=== PATIENT | male | born 1980 | race Caucasian/White ===

== ENCOUNTER 2020-04-16 16:02 | Emergency (ER) | payer BC ==
[2020-04-16] MEDS ORDERED: Diphtheria,Pertussis(Acell),Tetanus Vaccine 0.5 ML Syringe IM ONE (16:23)
[2020-04-16] MEDS ORDERED: Lidocaine 1% 10 ML MDV INJECT ONE (16:23)
--- NOTE | 2020-04-16 16:32 | EDM.PDOC ---
ED HPI GENERAL MEDICAL PROBLEM - General Chief Complaint: Head Injury Stated Complaint: HEAD INJURY Time Seen by Provider: 04/16/20 16:19 Source of Information: Reports: Patient, RN Notes Reviewed History Limitations: Reports: No Limitations - History of Present Illness INITIAL COMMENTS - FREE TEXT/NARRATIVE: Patient is a 39-year-old male presenting to the emergency department with complaints of a laceration to the top of his head. He states that a wooden beam fell down and hit him on the top of the head causing a laceration. He did not have loss of consciousness. He denies any headache or vision changes. Denies any nausea or vomiting. He is unsure when his last tetanus vaccination was. Head Pain Score (Numeric/FACES): 3 - Related Data Allergies Allergy/AdvReac Type Severity Reaction Status Date / Time No Known Allergies Allergy Verified 04/16/20 16:12 Home Meds: Home Meds . [No Known Home Meds] 04/16/20 [History] Past Medical History Gastrointestinal History: Reports: Other (See Below) Other Gastrointestinal History: ibs - Past Surgical History Male Surgical History: Reports: Vasectomy Social & Family History - Tobacco Use Tobacco Use Status *Q: Never Tobacco User Second Hand Smoke Exposure: No - Caffeine Use Caffeine Use: Reports: Coffee - Recreational Drug Use Recreational Drug Use: No ED ROS GENERAL - Review of Systems Review Of Systems: Comprehensive ROS is negative, except as noted in HPI. ED EXAM, HEAD INJURY - Physical Exam Exam: See Below General Appearance: Alert, WD/WN, No Apparent Distress Head: Scalp Lacerations (3 cm mid parietal laceration. 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, No Motor/Sensory Deficits, Alert, Normal Mood/Affect, Oriented x 3 - Diana Coma Score Best Eye Response (Diana): (4) Open Spontaneously Best Verbal Response (Atwood): (5) Oriented Best Motor Response ([place]wood): (6) Obeys Commands ED LACERATION/WOUND & AURA PROC - Laceration/Wound Repair Middle Head Lac/wound length in cm: 3 Appearance: Subcutaneous Anesthetic Type: Local Local Anesthesia - Lidocaine (Xylocaine): 1% Plain Local Anesthetic Volume: 1cc Skin Prep: Chlorhexidine (Hibiciens), Saline Exploration/Debridement/Repair: Wound Explored, No Foreign Material Found Closed with: Thurston # of Sutures: 4 Sterile Dressing Applied: Nurse Tetanus Status Addressed: Yes Complications: No Course - Vital Signs Last Recorded V/S: Last Vital Signs Temp 97.0 F 04/16/20 16:11 Pulse 79 04/16/20 16:11 Resp 15 04/16/20 16:11 BP 152/76 H 04/16/20 16:11 Pulse Ox 98 04/16/20 16:11 - Orders/Labs/Meds Orders: Active Orders 24 hr Category Date Time Status Vaccines to be Administered [RC] PER UNIT ROUTINE Care 04/16/20 16:23 Active Meds: Medications Discontinued Medications Generic Name Dose Route Start Last Admin Trade Name Freq PRN Reason Stop Dose Admin Diphtheria/Tetanus/Acell Pertussis 0.5 ml 04/16/20 16:23 04/16/20 16:55 Adacel IM 04/16/20 16:24 0.5 ml .ONCE ONE Administration Lidocaine HCl 10 ml 04/16/20 16:23 04/16/20 16:55 Xylocaine 1% INJECT 04/16/20 16:24 10 ml ONETIME ONE Administration Departure - Departure Time of Disposition: 17:00 Disposition: Home, Self-Care 01 Condition: Good Clinical Impression: Laceration of head Qualifiers: Encounter type: initial encounter Location of open wound of head: scalp Foreign body presence: without foreign body Qualified Code(s): S01.01XA - Laceration without foreign body of scalp, initial encounter - Discharge Information *PRESCRIPTION DRUG MONITORING PROGRAM REVIEWED*: No *COPY OF PRESCRIPTION DRUG MONITORING REPORT IN PATIENT TARIQ: No Instructions: Laceration Care, Adult, Head Injury, Adult, [id number] Referrals: Rafat Viramontes MD [Primary Care Provider] - Forms: ED Department Discharge Additional Instructions: You were seen in the emergency department today for a laceration to your head. The wound was cleansed and closed with 4 ladi. These should stay intact for 7 days. After that time they may be removed in the clinic by a nurse. Keep the wound clean and dry. Wash with normal soap and water twice daily. Do not submerge the wound in water. Watch for signs of infection including increased redness, swelling, or purulent drainage. If these should occur, you should be seen either in the clinic or in the emergency department as antibiotic treatment may be needed. With regards to head injury, if you should develop dizziness, blurred vision, vomiting more than 2 times, or any other concerning symptoms, please return to the ER for reevaluation. Sepsis Event Note (ED) - Evaluation Sepsis Screening Result: No Definite Risk - Focused Exam Vital Signs: Vital Signs Temp Pulse Resp BP Pulse Ox 04/16/20 16:11 97.0 F 79 15 152/76 H 98 - My Orders Last 24 Hours: My Active Orders 04/16/20 16:23 Vaccines to be Administered [RC] PER UNIT ROUTINE - Assessment/Plan Last 24 Hours: My Active Orders 04/16/20 16:23 Vaccines to be Administered [RC] PER UNIT ROUTINE
== END 2020-04-16 17:25 | disposition home or self-care (01) ==
LOC: JD.ED 16:02
DX: S01.01XA Laceration without foreign body of scalp, initial encounter (principal); Z23 Encounter for immunization; W20.8XXA Other cause of strike by thrown, projected or falling object, initial encounter
CPT/HCPCS: 12002; 90471; 90715; 99282; J2001

== ENCOUNTER 2021-03-04 18:56 | Emergency (ER) | payer BC ==
--- NOTE | 2021-03-04 20:57 | CR ---
Chest: Frontal view of the chest was obtained. Comparison: No prior chest imaging is available. Heart size and mediastinum are within normal limits. Small density is noted overlying the right hilum presumably due to small calcification which is felt to be incidental. Lungs are clear with no acute parenchymal change. Bony structures show nothing acute. Impression: 1. No acute intrathoracic process is seen on frontal chest x-ray. Diagnostic code #2
--- NOTE | 2021-03-04 21:04 | EDM.PDOC ---
ED HPI GENERAL MEDICAL PROBLEM - General Chief Complaint: Respiratory Problem Stated Complaint: COVID+/FEVER,CHILLS Time Seen by Provider: 03/04/21 19:34 Source of Information: Reports: Patient History Limitations: Reports: No Limitations - History of Present Illness INITIAL COMMENTS - FREE TEXT/NARRATIVE: 40-year-old male presents the emergency department with complaints of worsening Covid symptoms. Patient states he developed Covid symptoms which included fatigue, fever, backache as well as decreased appetite starting on 02/25/2021. He was tested on the day and tested positive. He states that since that time he has had a fever as high as 102 degrees. He states he has been taking Aleve and Tylenol however he states he cannot get his fever below 100 degrees. Also, co mplains of worsening low back pain and fatigue. Patient denies any history of smoking. States he is otherwise healthy. He does not take any prescription medications. He has a BMI of 24.3. Back Pain Score (Numeric/FACES): 8 - Related Data Allergies Allergy/AdvReac Type Severity Reaction Status Date / Time No Known Allergies Allergy Verified 03/04/21 19:22 Home Meds: Home Meds . [No Known Home Meds] 04/16/20 [History] Past Medical History - Past Health History Medical/Surgical History: Denies Medical/Surgical History Gastrointestinal History: Reports: Other (See Below) Other Gastrointestinal History: ibs - Infectious Disease History Infectious Disease History: Reports: Chicken Pox, Novel Coronavirus - Past Surgical History Male Surgical History: Reports: Vasectomy Social & Family History - Tobacco Use Tobacco Use Status *Q: Never Tobacco User Second Hand Smoke Exposure: No - Caffeine Use Caffeine Use: Reports: Coffee - Recreational Drug Use Recreational Drug Use: No ED ROS GENERAL - Review of Systems Review Of Systems: Comprehensive ROS is negative, except as noted in HPI. ED EXAM, GENERAL - Physical Exam Exam: See Below Exam Limited By: No Limitations General Appearance: Alert, WD/WN, Mild Distress Ears: Normal External Exam, Hearing Grossly Normal Nose: Normal Inspection Throat/Mouth: Normal Inspection, Normal Lips, Normal Voice, No Airway Compromise Head: Atraumatic Neck: Normal Inspection, Supple Respiratory/Chest: No Respiratory Distress, Lungs Clear, Normal Breath Sounds, No Accessory Muscle Use, Chest Non-Tender Cardiovascular: Normal Peripheral Pulses, Regular Rate, Rhythm, No Edema, No Murmur Peripheral Pulses: 2+: Radial (L), Radial (R) GI/Abdominal: Normal Bowel Sounds, Soft, Non-Tender, No Distention (Male) Exam: Deferred Rectal (Males) Exam: Deferred Back Exam: Normal Inspection, Paraspinal Tenderness Extremities: Normal Inspection Neurological: Alert, Oriented, Normal Cognition Psychiatric: Normal Affect, Normal Mood Skin Exam: Warm, Dry, Intact, Normal Color, No Rash Lymphatic: No Adenopathy Course - Vital Signs Text/Narrative:: As stated above, patient presents with worsening Covid symptoms, specifically low back pain, fatigue and fever. Physical exam is essentially unremarkable. Lung sounds are clear. Will obtain lab studies to include a CBC, CMP, CRP, magnesium and a D-dimer. We will also obtain a portable chest x-ray. Last Recorded V/S: Last Vital Signs Temp 100.5 F 03/04/21 19:18 Pulse 104 H 03/04/21 19:18 Resp 18 03/04/21 19:18 BP 153/80 H 03/04/21 19:18 Pulse Ox 91 L 03/04/21 19:18 - Orders/Labs/Meds Orders: Active Orders 24 hr Category Date Time Status CTA Chest W WO Contrast [Ang Chest] [CT] Stat Exams 03/04/21 20:43 Taken Sodium Chloride 0.9% [Normal Saline] 100 ml Med 03/04/21 21:45 Active IV ASDIRECTED Medication Orders Sodium Chloride (Normal Saline) 100 mls @ 60 mls/min IV ASDIRECTED GERMÁN Last Admin: 03/04/21 21:38 Dose: 60 mls/min Documented by: GEOVANNA Labs: Laboratory Tests 03/04/21 03/04/21 03/04/21 Range/Units 20:07 20:07 20:07 WBC 3.20 L (4.23-9.07) K/mm3 RBC 4.86 (4.63-6.08) M/mm3 Hgb 14.4 (13.7-17.5) gm/dl Hct 42.6 (40.1-51.0) % MCV 87.7 (79.0-92.2) fl MCH 29.6 (25.7-32.2) pg MCHC 33.8 (32.2-35.5) g/dl RDW Std Deviation 41.9 (35.1-43.9) fL Plt Count 165 (163-337) K/mm3 MPV 10.7 (9.4-12.3) fl Neut % (Auto) 69.3 H (34.0-67.9) % Lymph % (Auto) 18.8 L (21.8-53.1) % [place] % (Auto) 11.3 (5.3-12.2) % Eos % (Auto) 0.3 L (0.8-7.0) Baso % (Auto) 0.3 (0.1-1.2) % Neut # (Auto) 2.22 (1.78-5.38) K/mm3 Lymph # (Auto) 0.60 L (1.32-3.57) K/mm3 [place] # (Auto) 0.36 (0.30-0.82) K/mm3 Eos # (Auto) 0.01 L (0.04-0.54) K/mm3 Baso # (Auto) 0.01 (0.01-0.08) K/mm3 D-Dimer, Quantitative 1.40 H (0.19-0.50) mg/L Sodium 135 L (136-145) mEq/L Potassium 4.4 (3.5-5.1) mEq/L Chloride 98 (98-107) mEq/L Carbon Dioxide 29 (21-32) mEq/L Anion Gap 12.4 (5-15) BUN 20 H (7-18) mg/dL Creatinine 1.0 (0.7-1.3) mg/dL Est Cr Clr Drug Dosing 129.48 mL/min Estimated GFR (MDRD) > 60 (>60) mL/min BUN/Creatinine Ratio 20.0 H (14-18) Glucose 117 H (70-99) mg/dL Calcium 8.4 L (8.5-10.1) mg/dL Magnesium 2.8 H (1.8-2.4) mg/dL Total Bilirubin 0.6 (0.2-1.0) mg/dL AST 47 H (15-37) U/L ALT 40 (16-63) U/L Alkaline Phosphatase 36 L (46-116) U/L C-Reactive Protein 5.2 H* (<1.0) mg/dL Total Protein 7.5 (6.4-8.2) g/dl Albumin 3.9 (3.4-5.0) g/dl Globulin 3.6 gm/dL Albumin/Globulin Ratio 1.1 (1-2) Meds: Medications Generic Name Dose Route Start Last Admin Trade Name Freq PRN Reason Stop Dose Admin Sodium Chloride 100 mls @ 60 mls/min 03/04/21 21:45 03/04/21 21:38 Normal Saline IV 60 mls/min ASDIRECTED GERMÁN Administration Discontinued Medications Generic Name Dose Route Start Last Admin Trade Name Freq PRN Reason Stop Dose Admin Iopamidol 100 ml 03/04/21 21:37 03/04/21 21:37 Iopamidol 755 Mg/Ml 100 Ml Bottle IVPUSH 03/04/21 21:38 100 ml ONETIME ONE Administration - Re-Assessments/Exams Free Text/Narrative Re-Assessment/Exam: 03/04/21 21:32 Radiologist impression portable view of the chest: 1. Nothing acute is seen on frontal chest x-ray. 03/04/21 21:33 D-dimer slightly elevated at 1.40. Will obtain CTA of the lungs to rule out PE. 03/04/21 22:[address] [facility] [address] of the chest with contrast: 1. No pulmonary embolism. 2. Mild COVID-19 pneumonia. Patient will be discharged home. Departure - Departure Time of Disposition: 22:09 Disposition: Home, Self-Care 01 Condition: Good Clinical Impression: COVID-19 - Discharge Information Referrals: Rafat Viramontes MD [Primary Care Provider] - Forms: ED Department Discharge Additional Instructions: You were seen in the emergency department today with worsening Covid symptoms. Lab studies were completed which were essentially unremarkable however a value that is indicative of a blood clot called a D-dimer was elevated. CT scan of your lungs was completed which was negative for a blood clot in your lungs. This did however show mild COVID-19 pneumonia. This pneumonia is viral in origin so it cannot be treated with antibiotics. Recommend that you go home and rest and drink plenty of fluids. May alternate Tylenol 650 mg with ibuprofen 600 every 4 hours as needed for discomfort or fever. Should your condition worsen or change, do not hesitate returning to the emergency department. Sepsis Event Note (ED) - Focused Exam Vital Signs: Vital Signs Temp Pulse Resp BP Pulse Ox 03/04/21 19:18 100.5 F 104 H 18 153/80 H 91 L - My Orders Last 24 Hours: My Active Orders 03/04/21 20:43 CTA Chest W WO Contrast [Ang Chest] [CT] Stat 03/04/21 21:45 Sodium Chloride 0.9% [Normal Saline] 100 ml IV ASDIRECTED - Assessment/Plan Last 24 Hours: My Active Orders 03/04/21 20:43 CTA Chest W WO Contrast [Ang Chest] [CT] Stat 03/04/21 21:45 Sodium Chloride 0.9% [Normal Saline] 100 ml IV ASDIRECTED
[2021-03-04] MEDS ORDERED: Iopamidol 755 Mg/ML 100 ML Bottle IVPUSH ONE (21:37)
[2021-03-04] MEDS ORDERED: Sodium Chloride 0.9% 100 ML IV SCH (21:45)
--- NOTE | 2021-03-05 07:22 | CT ---
CT chest Technique: Multiple axial sections were obtained from above the lung apices inferiorly through the lung bases. Intravenous contrast was utilized. Study has been performed as a pulmonary angiogram protocol. Findings: Prior chest x-ray of 03/04/21. Findings: Pulmonary arteries are well opacified. No filling defects are seen to indicate pulmonary embolism. Thoracic aorta shows no aneurysm. No pericardial thickening is seen. Small portion of the visualized upper abdominal structures show nothing acute. Lung window settings were reviewed. Mild areas of parenchymal density are scattered within both lungs. No pleural effusions are seen. Bone window settings were reviewed which show no acute osseous abnormality. Impression: 1. No findings of pulmonary embolism. 2. Mild scattered parenchymal densities within both lungs presumably due to mild Covid pneumonia. Diagnostic code #3 I agree with preliminary report from [facility] finalized on 03/04/21, 11:06 PM CDT, code 1
== END 2021-03-04 22:20 | disposition home or self-care (01) ==
LOC: JD.ED 18:56
DX: U07.1 COVID-19 (principal)
CPT/HCPCS: 36415; 71045; 71275; 80053; 83735; 85025; 85379; 86140; 99284; Q9967

== ENCOUNTER 2021-03-06 21:09 | Emergency (ER) | payer BC ==
--- NOTE | 2021-03-06 22:50 | EDM.PDOC ---
ED HPI GENERAL MEDICAL PROBLEM - General Chief Complaint: Respiratory Problem Stated Complaint: COVID+/LOW O2 Time Seen by Provider: 03/06/21 22:15 Source of Information: Reports: Patient History Limitations: Reports: No Limitations - History of Present Illness INITIAL COMMENTS - FREE TEXT/NARRATIVE: Patient is 40-year-old male presenting with Covid and concerns about low oxygen levels at home. Patient had blood work-up done in the emergency room on March 04. Patient was concerned about low oxygen levels at this point. He was evaluated for pulmonary embolism, and had other laboratory studies done. And these demonstrated anything significant. Patient states since then, he has been checking his oxygen levels every day. He reports oxygen readings at home between 80 and 90%. Patient concerned about his breathing. No other chest pain or cough. No treatments given for COVID-19 at this point. - Related Data Allergies Allergy/AdvReac Type Severity Reaction Status Date / Time No Known Allergies Allergy Verified 03/06/21 21:52 Home Meds: Home Meds dexAMETHasone [Decadron] 6 mg PO DAILY #7 tablet 03/06/21 [Rx] Past Medical History - Past Health History Medical/Surgical History: Denies Medical/Surgical History Gastrointestinal History: Reports: Other (See Below) Other Gastrointestinal History: ibs - Infectious Disease History Infectious Disease History: Reports: Chicken Pox, Novel Coronavirus - Past Surgical History Male Surgical History: Reports: Vasectomy Social & Family History - Tobacco Use Tobacco Use Status *Q: Never Tobacco User Second Hand Smoke Exposure: No - Caffeine Use Caffeine Use: Reports: Coffee, Tea - Recreational Drug Use Recreational Drug Use: No ED ROS GENERAL - Review of Systems Review Of Systems: See Below Free Text/Narrative/Comment: In addition to that documented in the HPI above, the additional ROS was obtained: Constitutional: Denies fevers or chills Eyes: Denies vision changes ENMT: Denies sore throat CV: Denies chest pain Resp: Per HPI GI: Denies vomiting or diarrhea : Denies painful urination MSK: Denies recent trauma Skin: Denies new rashes Neuro: Denies new numbness or tingling or weakness Endocrine: Denies unexpected weight loss Heme: Denies bleeding disorders ED EXAM, GENERAL - Physical Exam Exam: See Below Free Text/Narrative:: I have reviewed the triage vital signs Const: Well nourished, well developed, appears stated age Eyes: Pupils Equal and reactive to light bilaterally, no conjunctival injection HENT: No signs of trauma or swelling, Neck supple without meningismus CV: Regular Rate Rhythm, Warm, well-perfused extremities RESP: Unlabored respiratory effort GI: soft, non-tender, non-distended, no masses MSK: No gross deformities appreciated Skin: Warm, dry. No rashes Neuro: Alert, director [employer] II-XII grossly intact. Sensation and motor function of extremities grossly intact. Psych: Appropriate mood and affect. Course - Vital Signs Last Recorded V/S: Last Vital Signs Temp 36.1 C 03/06/21 21:51 Pulse 85 03/06/21 23:10 Resp 20 03/06/21 23:10 BP 124/76 03/06/21 21:51 Pulse Ox 90 L 03/06/21 23:10 - Orders/Labs/Meds Meds: Medications Discontinued Medications Generic Name Dose Route Start Last Admin Trade Name Jose Antonioq PRN Reason Stop Dose Admin Dexamethasone 6 mg 03/07/21 22:47 Dexamethasone 4 Mg Tab PO 03/07/21 22:48 ONETIME ONE Dexamethasone Confirm 03/06/21 23:11 03/06/21 23:30 Dexamethasone 4 Mg Tab Administered 03/06/21 23:12 Not Given Dose 8 mg .ROUTE .STK-MED ONE Dexamethasone 6 mg 03/06/21 23:00 03/06/21 23:05 Dexamethasone 4 Mg Tab PO 03/06/21 23:01 6 mg ONETIME ONE Administration Departure - Departure Time of Disposition: 22:50 Disposition: Home, Self-Care 01 Clinical Impression: COVID-19, Pneumonia - Discharge Information Prescriptions: dexAMETHasone [Decadron] 6 mg PO DAILY #7 tablet Instructions: COVID-19 Frequently Asked Questions Referrals: Rafat Viramontes MD [Primary Care Provider] - Forms: ED Department Discharge Sepsis Event Note (ED) - Focused Exam Vital Signs: Vital Signs Temp Pulse Resp BP Pulse Ox 03/06/21 23:10 85 20 90 L 03/06/21 21:55 88 20 87 L 03/06/21 21:51 36.1 C 85 20 124/76 91 L - Assessment/Plan Assessment:: Patient is 40-year-old male presenting to the emergency room with a chief complaint of COVID and low oxygen levels. Patient satting between 88 and 92% on room air. No evidence of respiratory distress. Work-up yesterday extremely thorough does not require any blood tests or imaging at this time. Patient be initiated on dexamethasone and instructions for home oxygen when his oxygen levels are low, particularly at night. Patient given other appropriate return precautions. Agrees with plan of care.
[2021-03-06] MEDS ORDERED: Dexamethasone 4 MG Tab PO ONE (23:00)
[2021-03-06] MEDS ORDERED: Dexamethasone 4 MG Tab ONE (23:11)
[2021-03-07] MEDS ORDERED: Dexamethasone 4 MG Tab PO ONE (22:47)
== END 2021-03-06 23:20 | disposition home or self-care (01) ==
LOC: JD.ED 21:09
DX: U07.1 COVID-19 (principal); J12.82 Pneumonia due to coronavirus disease 2019
CPT/HCPCS: 99283; J8540

== ENCOUNTER 2021-03-08 07:49 | Emergency (ER) | payer BC ==
--- NOTE | 2021-03-08 08:36 | EDM.PDOC ---
ED HPI GENERAL MEDICAL PROBLEM - General Chief Complaint: Respiratory Problem Stated Complaint: COVID +\ LOW OXYGEN Time Seen by Provider: 03/08/21 07:58 Source of Information: Reports: Patient, Old Records (ED visits 03/04/2021, 03/06/2021) History Limitations: Reports: No Limitations - History of Present Illness INITIAL COMMENTS - FREE TEXT/NARRATIVE: Mr. Munoz is a very pleasant 40-year-old gentleman who states that he developed symptoms of fever, fatigue, lower backache, and decreased appetite on 02/24/2021. He tested positive for the SARS-CoV-2 virus on 02/25/2021. He took Aleve and Tylenol for his symptoms. He was seen in this ED on 03/04/2021, at which time his SpO2 was 91% on room air. Work-up included a CBC, CMP, magnesium level, CRP, D-dimer, chest x-ray, and CT angiogram of the chest. His CRP was found to be 5.2. The CT angiogram of the chest was negative for a pulmonary embolus, but demonstrated mild COVID pneumonia. He was seen again in this ED on 03/06/2021, stating that his SpO2 was 80 to 90% at home. It was 88 to 92% here in the ED, therefore he was started on dexamethasone 6 mg, and given a prescription for the same dose for 7 days, along with home oxygen on an as- needed basis. The patient now returns to the ED stating that his SpO2 was in the 60% range last night. He states that he continues to have fatigue, a lower backache, and decreased appetite. He no longer has fevers. Here in the ED, the patient's SpO2 was found to be 92% on 2 L of oxygen per nasal cannula. He is otherwise hemodynamically stable, afebrile. The patient denies having a recent sore throat, ear pain, nasal or sinus congestion, chest pain, palpitations, nausea, vomiting, constipation, diarrhea, abdominal pain, urinary symptoms, recent weight gain or weight loss, recent bloody bowel movements or black bowel movements, recent joint aches, headaches, or rashes. The patient's PCP is Dr. Rafat Viramontes. He has not received a COVID vaccination. Lower Back Pain Score (Numeric/FACES): 0 - Related Data Allergies Allergy/AdvReac Type Severity Reaction Status Date / Time No Known Allergies Allergy Verified 03/08/21 08:04 Home Meds: Home Meds dexAMETHasone [Decadron] 6 mg PO DAILY #7 tablet 03/06/21 [Rx] Past Medical History Cardiovascular History: Reports: High Cholesterol (untreated) - Infectious Disease History Infectious Disease History: Reports: Chicken Pox, Novel Coronavirus (dx'd 02/25/2021) - Past Surgical History HEENT Surgical History: Reports: Oral Surgery (dental extractions) Male Surgical History: Reports: Vasectomy Social & Family History - Tobacco Use Tobacco Use Status *Q: Former Tobacco User Years of Tobacco use: 6 Packs/Tins Daily: 1 Month/Year Tobacco Last Used: Quit 2009 Tobacco Use Comment: Started smoking 2003 Second Hand Smoke Exposure: No - Alcohol Use Alcohol Use History: Yes Alcohol Use Frequency: Socially - Recreational Drug Use Recreational Drug Use: No - Living Situation & Occupation Living situation: Reports: , with Spouse, with Family (2 kids) Occupation: Employed ([employer]) ED ROS GENERAL - Review of Systems Review Of Systems: Comprehensive ROS is negative, except as noted in HPI. ED EXAM, GENERAL - Physical Exam Exam: See Below Exam Limited By: No Limitations General Appearance: Alert, WD/WN, No Apparent Distress Eye Exam: Bilateral Eye: EOMI, Normal Inspection Ears: Normal External Exam, Hearing Grossly Normal Nose: Normal Inspection Throat/Mouth: Normal Inspection, Normal Lips, Normal Voice, No Airway Compromise Head: Atraumatic, Normocephalic Neck: Normal Inspection, Full Range of Motion Respiratory/Chest: No Respiratory Distress, Lungs Clear, Normal Breath Sounds, No Accessory Muscle Use. No: Decreased Breath Sounds, Crackles, Rhonchi, Wheezing, Stridor, Prolonged Expiration Cardiovascular: Normal Peripheral Pulses, Regular Rate, Rhythm, No Edema, No Gallop, No JVD, No Murmur, No Rub Peripheral Pulses: 3+: Radial (L), Radial (R) GI/Abdominal: Normal Bowel Sounds, Soft, Non-Tender, No Organomegaly, No Distention, No Abnormal Bruit, No Mass Back Exam: Normal Inspection, Full Range of Motion, NT Extremities: Normal Inspection, Normal Range of Motion, No Pedal Edema, Normal Capillary Refill Neurological: Alert, Oriented, Normal Cognition, No Motor/Sensory Deficits Psychiatric: Normal Affect Skin Exam: Warm, Dry, Intact, Normal Color, No Rash Course - Vital Signs Last Recorded V/S: Last Vital Signs Temp 36.9 C 03/08/21 08:00 Pulse 92 03/08/21 08:00 Resp 18 03/08/21 08:00 BP 140/89 03/08/21 08:00 Pulse Ox 92 L 03/08/21 08:00 - Re-Assessments/Exams Free Text/Narrative Re-Assessment/Exam: 03/08/21 08:32 The patient's oxygen saturation is 92 to 94% on 2 L of oxygen per nasal cannula. I explained that he does not currently meet criterion for hospitalization, but that if he continues to require ever-increasing quantities of oxygen, up to 6 L per nasal cannula in order to maintain an oxygen saturation of 90%, we would want to see him back, because if verified, he would at that time meet criterion for admission and treatment with remdesivir. That being said, his CRP was 5.2 on 03/04/2021, therefore I do not expect that his condition will severely decline. Departure - Departure Time of Disposition: 08:34 Disposition: Home, Self-Care 01 Condition: Good Clinical Impression: COVID-19 - Discharge Information *PRESCRIPTION DRUG MONITORING PROGRAM REVIEWED*: Not Applicable *COPY OF PRESCRIPTION DRUG MONITORING REPORT IN PATIENT TARIQ: Not Applicable Referrals: Rafat Viramontes MD [Primary Care Provider] - Additional Instructions: You were seen in the emergency room for a low oxygen reading on your home finger pulse oximeter last night. In the ER, your oxygen saturation was 92 to 94% on 2 L of oxygen per nasal cannula. We recommend that you continue to take your dexamethasone, as previously prescribed. Stay adequately hydrated, and take [id number] ibuprofen as needed for discomfort. As discussed, we recommend that you continue to check your oxygen level several times a day. Make sure that the pulse that the pulse oximeter believes you have correlates with your actual pulse. If you require up to 6 L of oxygen in order to maintain an oxygen saturation of 90%, please return to the ER for reevaluation. Sepsis Event Note (ED) - Evaluation Sepsis Screening Result: No Definite Risk - Focused Exam Vital Signs: Vital Signs Temp Pulse Resp BP Pulse Ox 03/08/21 08:00 36.9 C 92 18 140/89 92 L
== END 2021-03-08 08:58 | disposition home or self-care (01) ==
LOC: JD.ED 07:49
DX: U07.1 COVID-19 (principal); Z87.891 Personal history of nicotine dependence
CPT/HCPCS: 99283